=== PATIENT | female | born 1990 | race African-American/Black ===

== ENCOUNTER 2020-09-01 14:26 | Emergency (ER) | payer MEDICAID ==
[~2020-09-01] VITALS: Ht 157.5 cm; Wt 59.0 kg
[2020-09-01 14:58] VITALS: BP 114/79
[2020-09-01] MEDS ORDERED: KETOROLAC 30MG/ML VIAL IM ONE (15:30)
== END 2020-09-01 17:00 | disposition home or self-care (01) ==
LOC: ER 14:26
DX: M25.562 Pain in left knee (principal); M25.561 Pain in right knee
CPT/HCPCS: 99282; J1885